=== PATIENT | male | born 1975 | race Hispanic/Latino ===

== ENCOUNTER 2021-09-24 06:42 | Day surgery (SDC) | payer BC ==
[2021-09-22 10:53] LABS: Absolute Lymphocytes (CBC) 1.8 K/uL (0.7-4.9); Basophils % 0.6 % (0-1.3); Hematocrit 43.7 % (39.6-49.0); Lymphocytes % 34.6 % (15.3-44.8); MPV 11.6 fL (7.6-11.3); RBC Red Blood Cell Count 4.94 M/uL (4.33-5.43)
--- NOTE | 2021-09-22 11:27 | RAD REPORT ---
EXAM DESCRIPTION: Ena Avalos (2 Views)09/22/2021 11:03 am CLINICAL HISTORY: Preop COMPARISON: 2009 FINDINGS: The lungs appear clear of acute infiltrate. The heart is normal size IMPRESSION: No acute abnormalities displayed
[2021-09-22 12:04] LABS: Blood Morphology Comment NOT SEEN (NOT SEEN); Platelet Estimate DECR; White Blood Cell Scan OK (OK)
[2021-09-22 12:05] LABS: Platelets, Giant FEW PRESENT
--- NOTE | 2021-09-22 16:51 | EKG ---
Test Date: 2021-09-22 Test Time: 10:31:50 Loom Blower: RICHY MEASUREMENT RESULTS: Intervals: Rate: 67 MO: 150 QRSD: 82 QT: 372 QTc: 393 [place]: P: 62 MO: 150 QRS: 54 T: 53 INTERPRETIVE STATEMENTS: Normal sinus rhythm Normal ECG Compared to ECG 10/07/2017 16:20:22 Sinus tachycardia no longer present Electronically Signed On 09-22-21 16:50:58 [employer] by Дмитрий Arizmendi
[2021-09-24] MEDS ORDERED: CEFAZOLIN/NS 1gm 1 GM/50 ML BAG ONE (06:53)
[2021-09-24] MEDS ORDERED: Ringers Lactate 1,000 ML IV ONE (06:53)
[2021-09-24] MEDS ORDERED: CELECOXIB 100 MG CAPSULE ONE (07:58)
[2021-09-24] MEDS ORDERED: ACETAMINOPHEN 500 MG TAB ONE (07:59)
[2021-09-24] MEDS ORDERED: CELECOXIB 100 MG CAPSULE PO ONE (08:05)
[2021-09-24] MEDS ORDERED: ACETAMINOPHEN 500 MG TAB PO ONE (08:05)
[2021-09-24] MEDS ORDERED: LIDOCAINE 2% MPF 5 ML VIAL ONE (08:26)
[2021-09-24] MEDS ORDERED: FENTANYL CITR 100 MCG/2 ML ONE (08:26)
[2021-09-24] MEDS ORDERED: GLYCOPYRROLATE 0.2 MG/ML SYR ONE (08:26)
[2021-09-24] MEDS ORDERED: MIDAZOLAM HCL 2 MG/2 ML INJ ONE (08:26)
[2021-09-24] MEDS ORDERED: BUPIVACAINE 0.5% PF 10 ML VIAL ONE ×2 (08:27→09:08)
[2021-09-24] MEDS ORDERED: propofoL 200 MG/20 ML VIAL IV ONE (08:27)
[2021-09-24] MEDS ORDERED: SODIUM BICARB 50 MEQ/50ML VIAL ONE (08:28)
[2021-09-24] MEDS ORDERED: ROCURONIUM 50 MG/5 ML VIAL IV ONE (08:32)
[2021-09-24] MEDS ORDERED: ONDANSETRON 4 MG/2 ML VIAL ONE (09:20)
[2021-09-24] MEDS ORDERED: KETOROLAC 30 MG/ML INJ ONE (09:20)
[2021-09-24] MEDS ORDERED: HYDROCODONE/APAP 7.5/325 MG TAB ONE (10:50)
[2021-09-24 11:20] VITALS: BP 126/75; TEMP 97.6; O2SAT 99
--- NOTE | 2021-09-24 12:01 | OP ---
Date of Procedure: 09/24/2021 Surgeon: Lm Lazar MD Product Test Engineer: Julio Hernandez, surgical lead certified. Preoperative Diagnosis: left upper back mass. Postoperative Diagnosis: left upper back mass. Procedure: Wide excision of left upper back mass 6 x 3 cm with layered closure. Estimated Blood Loss: Minimal. Specimen: Left upper back mass. Finding: A large sebaceous cyst. Anesthesia: General. Complications: None. Disposition: The patient tolerated the procedure in stable condition and taken to Recovery in good g eneral condition. Procedure In Detail: The patient was brought to the OR and placed in supine position. General anest hesia begun. The patient was placed in the right lateral position, prepped and draped in usual steri le fashion. Marcaine 0.5% was infiltrated locally for postop pain control. Then, a 15 blade was use d to make a 6 x 3 cm incision around the enlarged mass that was palpable. There was a punctum in the center. Subcutaneous tissue was divided. The entire mass with the cyst wall was excised and sent t o Pathology after being appropriately labeled. Wound irrigated. Bleeding controlled with cautery. Flaps created. A #1 chromic used to reapproximate subcutaneous tissue and #3-0 nylon used to close t he skin. Sterile dressing applied. The patient was awakened and taken to Recovery in good general c ondition. Discharge Note: The patient will go to Day Surgery and home when stable. Disposition: Home. Condition: Stable. Discharge Instructions: Resume home medications and diet. Activity as tolerated. No heavy lifting. Remove outer dressing in 2 days. Shower. Dry gauze to wound daily. Cipro 500 mg p.o. q.12 hours and Tylenol No.3 one tablet p.o. q.4 p.r.n. pain. /MODL Voice ID: [id number] Report ID: [id number]
== END 2021-09-24 11:12 | disposition home or self-care (01) ==
LOC: OR 06:42
PROVIDERS: ATTEND Surgery
PROC: 0JB70ZZ Excision of Back Subcutaneous Tissue and Fascia, Open Approach (ICD-10-PCS; principal; 2021-09-24 08:15)
DX: L72.0 Epidermal cyst (principal); Z20.822 Contact with and (suspected) exposure to COVID-19
CPT/HCPCS: 93005; 85025; 80048; 36415; 88304; 71046; 11406; U0003; J2704; J2250; J3010; J0690; J7120; J2405; 88305